=== PATIENT | male | born 2000 | race Caucasian/White ===

== ENCOUNTER 2020-05-09 12:37 | Emergency (ER) | payer OTHER, SELFPAY ==
[2020-05-09 12:49] VITALS: BP 112/74; PULSE 115; RESP 18; TEMP 36.7; O2SAT 98
--- NOTE | 2020-05-09 14:36 | ED.URI ---
HPI - URI/Sore Throat General Chief Complaint: Upper Respiratory Infection Stated Complaint: BODY ACHES,FEVER,THROAT CONGESTION Time Seen by Provider: 05/09/20 13:05 Source: patient Mode of arrival: ambulatory Limitations: no limitations History of Present Illness HPI Narrative: Patient presents with chief complaint of fever of 101.5 yesterday accompanied with scratchy throat. Patient states that he took Tylenol last night and this morning. Patient states that he does not have any cough, shortness of breath, chest pain, nausea, vomiting, diarrhea or any other symptoms. Patient states that he came for evaluation as he is not allowed to return back to work until evaluated. Patient is concerned for COVID. Does not know a direct contact. Related Data Allergies Allergy/AdvReac Type Severity Reaction Status Date / Time No Known Allergies Allergy Verified 05/09/20 13:41 Review of Systems Review of Systems: Narrative: CONSTITUTIONAL: Reports fever denies chills, or sweats. EYES: Denies visual changes, redness, or discharge. ENT: Reports sore throat denies rhinorrhea, congestion, or otalgia. CARDIOVASCULAR: Denies chest pain, palpitations, or edema. RESPIRATORY: Denies cough or dyspnea. GASTROINTESTINAL: Denies abdominal pain, nausea, vomiting, or diarrhea. GENITOURINARY: Denies dysuria or hematuria. SKIN: Denies rash or itching. MUSCULOSKELETAL: Denies back pain, joint pain, or myalgia. NEUROLOGIC: Denies headache, numbness, dizziness, or weakness. PSYCHIATRIC: Denies anxiety or depression. PMFSH Social History Social History Gender identity (if verbalized by the patient): Male Exam Narrative: Exam Narrative: GENERAL: Well-appearing, well-nourished, and in no acute distress. HEAD: Normocephalic, atraumatic. EYES: PERRLA and EOMI. ENT: Nares clear, no rhinorrhea or epistaxis. Mucous membranes moist. Oropharynx without tonsillar hypertrophy exudate or other lesions. Bilateral TMs pearly landeros nonbulging NECK: Supple. No adenopathy or masses. CHEST: Clear to auscultation. No respiratory distress. No wheezes rales or rhonchi HEART: Regular rate and rhythm. EXTREMITIES: Normal range of motion. SKIN: Warm, dry, no rash. NEURO: No focal deficits. Alert and oriented x3. PSYCH: Normal mood and affect. Course Vital Signs Vital signs: Vital Signs Temperature 98.0 F 05/09/20 12:49 Pulse Rate 115 H 05/09/20 12:49 Respiratory Rate 18 05/09/20 12:49 Blood Pressure 112/74 05/09/20 12:49 Pulse Oximetry 98 05/09/20 12:49 Temperature 98.0 F 05/09/20 12:49 Pulse Rate 115 H 05/09/20 12:49 Respiratory Rate 18 05/09/20 12:49 Blood Pressure 112/74 05/09/20 12:49 Pulse Oximetry 98 05/09/20 12:49 MDM - URI/Sore Throat MDM Narrative Medical decision making narrative: Patient appears well and in no distress. Patient declines chest x-ray. Patient is in agreement with strep test and would like to be tested as well. Discussed with patient that culture results did not come back immediately and will need to quarantine himself more for daily as long as he is symptomatic and awaiting results. Patient verbalized understanding and will plan denies any other questions or concerns.. Differential Diagnosis Differential diagnosis: Likely upper respiratory infection, otitis media, sinusitis, viral infection, bronchitis, influenza and pharyngitis Lab Data Labs: Strep Screen Presumptive Negative *(Reference Range: Negative)* Discharge Plan Discharge Clinical Impression: Viral infection Patient Disposition: Home, Self-Care Condition: Stable Instructions: Antibiotic Form, Viral Syndrome (ED) Additional Instructions: Drink plenty of fluids. Take Tylenol or Motrin for discomfort. You may also use [id number] medications for sore throat or cold. Follow CBC and health department guidelines in regards to quarantine instructions and timelines. Your COVID tests will ta
[2020-05-09 14:58] VITALS: BP 130/56; PULSE 100; RESP 16; TEMP 37.2; O2SAT 99
[2020-05-10 15:08] LABS: SARS-CoV-2 RNA PCR Negative
== END 2020-05-09 14:59 | disposition home or self-care (01) ==
PROVIDERS: Physician Assistant; Emergency Provider Emergency Medicine
DX: B34.9 Viral infection, unspecified (principal); Z20.828 Contact with and (suspected) exposure to other viral communicable diseases
CPT/HCPCS: 87081; 87635; 87880; 99283; C9803; U0003